=== PATIENT | male | born 1945 | race Caucasian/White ===

== ENCOUNTER 2017-06-23 15:42 | Observation (INO) | payer MEDICARE ==
[2017-06-23] VITALS (8 sets, daily range): BP systolic 87–132; BP diastolic 46–68; PULSE 45–72; RESP 16–17; TEMP 98.5; O2SAT 96–97
[~2017-06-23] VITALS: Ht 182.9 cm; Wt 88.9 kg
[~2017-06-23 15:42] MED LIST: AMLO5TAB2 PO; ASPI1TAB57 PO; LISI10TA3 PO; PRIL20TA2 PO; ROSU10 PO; SM M250T PO
[2017-06-23] MEDS ORDERED: ASPIRIN 325 MG TAB PO ONE (16:00)
[2017-06-23] MEDS ORDERED: NITROGLYCERIN 0.4 MG SL 25 TABS/BTL SL ONE (16:00)
[2017-06-23] MEDS ORDERED: SODIUM CHLORIDE 0.9% FLUSH 10 ML FLUSH IVF PRN (16:00)
--- NOTE | 2017-06-23 16:13 | PD ---
HPI Chief Complaint: Cardiac Complaint Time Seen by Provider: 16:00 Travel History International Travel<30 days: No Contact w/Intl Traveler<30days: No Traveled to known affect area: No History of Present Illness HPI 71 y/o male presents with indigestion and tired feeling with associated chest pain over the past couple of days. He states he went to his primary care physician who referred him here after doing an EKG. He states that he's taken a baby aspirin today. He denies any other concurrent complaints. He states his lounge car attendant is in [place] and he has not seen them for a couple years. He states that he's had an ablation before and his last cardiac workup was a stress test a couple years ago. Quality is pressure. Severity is moderate. He denies specific modifying factors. Duration is couple of days. PFSH Past Medical History Hx Anticoagulant Therapy: Yes (asa 81mg) Cardiovascular Problems: Yes (htn on meds) High Cholesterol: Yes Hypertension: Yes Past Surgical History Appendectomy: Yes Social History Alcohol Use: Yes Tobacco Use: No Substance Use: No Allergies-Medications (Allergen,Severity, Reaction): Coded Allergies: gabapentin (Unverified Allergy, Severe, Rash, 06/23/17) bacitracin (Unverified Allergy, Unknown, RASH, 06/23/17) gramicidin D (Unverified Allergy, Unknown, RASH, 06/23/17) neomycin (Unverified Allergy, Unknown, RASH, 06/23/17) polymyxin B (Unverified Allergy, Unknown, RASH, 06/23/17) Reported Meds & Prescriptions Reported Meds & Active Scripts Active Reported Clindamycin (Clindamycin HCl) 300 Mg Cap 300 Mg PO Q6H Amlodipine (Amlodipine Besylate) 5 Mg Tab 5 Mg PO DAILY Aspirin 81 (Aspirin) 81 Mg Tabdr 81 Mg PO DAILY Lisinopril 10 Mg Tab 10 Mg PO DAILY Sm Magnesium (Magnesium) 250 Mg Tab 1 Tab PO DAILY Prilosec (Omeprazole Magnesium) 20 Mg Tab 1 Tab PO DAILY Crestor (Rosuvastatin Calcium) 10 Mg Tab 10 Mg PO HS Review of Systems Except as stated in HPI: all other systems reviewed are Neg Physical Exam Narrative GENERAL: 71-year-old male in no apparent distress SKIN: Focused skin assessment warm/dry. HEAD: Atraumatic. Normocephalic. EYES: Pupils equal and round. No scleral icterus. No injection or drainage. ENT: No nasal bleeding or discharge. Mucous membranes pink and moist. NECK: Trachea midline. No JVD. CARDIOVASCULAR: Regular rate and rhythm. No murmur appreciated. RESPIRATORY: No accessory muscle use. Clear to auscultation. Breath sounds equal bilaterally. GASTROINTESTINAL: Abdomen soft, non-tender, nondistended. MUSCULOSKELETAL: No obvious deformities. No clubbing. No cyanosis. No edema. Limited Right middle toe with mild amount of erythema noted without active abscess or crepitus NEUROLOGICAL: Awake and alert. Motor grossly within normal limits. Normal speech. Data Data Last Documented VS Vital Signs Date Time Temp Pulse Resp B/P (MAP) Pulse Ox O2 Delivery O2 Flow Rate FiO2 06/23/17 16:27 Room Air 06/23/17 16:21 16 06/23/17 16:18 111/56 (74) 87/46 (60) 06/23/17 16:17 96 06/23/17 15:55 98.5 45 Orders Orders Electrocardiogram (06/23/17 16:00) B-Type Natriuretic Peptide (06/23/17 16:00) Ckmb (Isoenzyme) Profile (06/23/17 16:00) Complete Blood Count With Diff (06/23/17 16:00) Comprehensive Metabolic Panel (06/23/17 16:00) Magnesium (Mg) (06/23/17 16:00) Prothrombin Time / Inr (Pt) (06/23/17 16:00) Act Partial Throm Time (Ptt) (06/23/17 16:00) Troponin I (06/23/17 16:00) Ecg Monitoring (06/23/17 16:00) Bilateral Bp Monitoring (06/23/17 16:00) Iv Access Insert/Monitor (06/23/17 16:00) Oximetry (06/23/17 16:00) Aspirin (Aspirin) (06/23/17 16:00) Sodium Chloride 0.9% Flush (Ns Flush) (06/23/17 16:00) Nitroglycerin Sl (Nitrostat Sl) (06/23/17 16:00) Chest, Pa & Lat (06/23/17 16:00) CKMB (06/23/17 16:10) CKMB% (06/23/17 16:10) Admit Order (Ed Use Only) (06/23/17 17:10) Place In Observation (06/23/17 17:14) Activity Bed Rest With Brp (06/23/17 17:14) Vital Signs (Adult) Q4H (06/23/17 17:14) Cardiac Rhythm .As Directed (06/23/17 17:14) Notify Dr: Other .PRN (06/23/17 17:14) Notify Dr. Parameters (06/23/17 17:14) Resp Oxygen Nasal Cannula (06/23/17 ) Diet Heart Healthy (06/23/17 Dinner) Ckmb (Isoenzyme) Profile (06/23/17 19:00) Ckmb (Isoenzyme) Profile (06/23/17 22:00) Troponin I (06/23/17 19:00) Troponin I (06/23/17 22:00) Electrocardiogram (06/23/17 19:00) Electrocardiogram (06/23/17 22:00) ^ Obtain (06/23/17 17:14) Sodium Chloride 0.9% Flush (Ns Flush) (06/23/17 17:15) Sodium Chloride 0.9% Flush (Ns Flush) (06/23/17 21:00) Acetaminophen (Tylenol) (06/23/17 17:15) Acetamin-Hydrocod 325-7.5 Mg ([place] 7.5 (06/23/17 17:15) Morphine Inj (Morphine Inj) (06/23/17 17:15) Ondansetron Inj (Zofran Inj) (06/23/17 17:15) Nitroglycerin Sl (Nitrostat Sl) (06/23/17 17:15) Aspirin (Aspirin) (06/24/17 09:00) Lead Simulation Modeling Engineer / Telemetry SARAH.Q8H (06/23/17 17:14) Scd Bilateral/Knee High SARAH.BID (06/23/17 17:14) [place] Bilateral/Knee High SARAH.QSHIFT (06/23/17 17:14) Npo After Midnight W/ Po Meds (06/24/17 Breakfast) Amlodipine (Norvasc) (06/24/17 09:00) Lisinopril (Prinivil) (06/24/17 09:00) (Nf) Omeprazole Magnesium (Prilosec) (06/24/17 09:00) (Nf) Rosuvastatin (Crestor) (06/23/17 21:00) Labs Laboratory Tests Test 06/23/17 16:10 White Blood Count 8.4 TH/MM3 Red Blood Count 4.96 MIL/MM3 Hemoglobin 16.2 GM/DL Hematocrit 46.3 % Mean Corpuscular Volume 93.4 FL Mean Corpuscular Hemoglobin 32.8 PG Mean Corpuscular Hemoglobin Concent 35.1 % Red Cell Distribution Width 12.2 % Platelet Count 173 TH/MM3 Mean Platelet Volume 7.9 FL Neutrophils (%) (Auto) 56.4 % Lymphocytes (%) (Auto) 26.4 % Monocytes (%) (Auto) 12.2 % Eosinophils (%) (Auto) 3.9 % Basophils (%) (Auto) 1.1 % Neutrophils # (Auto) 4.8 TH/MM3 Lymphocytes # (Auto) 2.2 TH/MM3 Monocytes # (Auto) 1.0 TH/MM3 Eosinophils # (Auto) 0.3 TH/MM3 Basophils # (Auto) 0.1 TH/MM3 CBC Comment DIFF FINAL Differential Comment Prothrombin Time 10.1 SEC Prothromb Time International Ratio 1.0 RATIO Activated Partial Thromboplast Time 25.1 SEC Blood Urea Nitrogen 23 MG/DL Creatinine 1.00 MG/DL Random Glucose 96 MG/DL Total Protein 8.0 GM/DL Albumin 4.0 GM/DL Calcium Level 9.4 MG/DL Magnesium Level 2.1 MG/DL Alkaline Phosphatase 83 U/L Aspartate Amino Transf (AST/SGOT) 30 U/L Alanine Aminotransferase (ALT/SGPT) 33 U/L Total Bilirubin 0.9 MG/DL Sodium Level 134 MEQ/L Potassium Level 4.1 MEQ/L Chloride Level 102 MEQ/L Carbon Dioxide Level 24.6 MEQ/L Anion Gap 7 MEQ/L Estimat Glomerular Filtration Rate 74 ML/MIN Total Creatine Kinase 107 U/L Creatine Kinase MB 3.2 NG/ML Troponin I LESS THAN 0.02 NG/ML B-Type Natriuretic Peptide 164 PG/ML MDM Medical Decision Making Medical Screen Exam Complete: Yes Emergency Medical Condition: Yes Medical Record Reviewed: Yes (pmh confirmed) Interpretation(s) CBC & BMP Diagram 06/23/17 16:10 Total Protein 8.0, Albumin 4.0, Calcium Level 9.4, Magnesium Level 2.1, Alkaline Phosphatase 83, Aspartate Amino Transf (AST/SGOT) 30, Alanine Aminotransferase (ALT/SGPT) 33, Total Bilirubin 0.9 cxr no acute Differential Diagnosis Gastritis, cardiac, musculoskeletal Narrative Course Will check blood work, chest x-ray, EKG and dose with aspirin and nitroglycerin and reevaluate. Area on patient's toe is starting to improve per patient on the clindamycin that he is taking. This can be continued. labs without emergent findings, agrees to [facility] observation Physician Communication Physician Communication dr guevara agrees to admit Diagnosis Primary Impression: Chest pain Qualified Codes: R07.9 - Chest pain, unspecified Admitting Information Admitting Physician Requests: Observation Ada Srinivasan MD Jun 23, 2017 16:12
[2017-06-23 16:26] LABS: AUTOMATED NEUTROPHIL # 4.8 TH/MM3 (1.8-7.7); BASOPHIL # 0.1 TH/MM3 (0-0.2); BASOPHIL % 1.1 % (0.0-2.0); EOSINOPHIL # 0.3 TH/MM3 (0-0.4); EOSINOPHIL % 3.9 % (0.0-4.0); HEMATOCRIT 46.3 % (39.0-51.0); HEMOGLOBIN 16.2 GM/DL (13.0-17.0); LYMPH % 26.4 % (9.0-44.0); LYMPHOCYTE # 2.2 TH/MM3 (1.0-4.8); MEAN CELL VOLUME 93.4 FL (80.0-100.0); MEAN CORPUSCULAR HEMOGLOBIN 32.8 PG (27.0-34.0); MEAN CORPUSCULAR HGB CONC 35.1 % (32.0-36.0); MEAN PLATELET VOLUME 7.9 FL (7.0-11.0); MONO % 12.2 % (0.0-8.0); NEUT % 56.4 % (16.0-70.0); PLATELET COUNT 173 TH/MM3 (150-450); RED BLOOD COUNT 4.96 MIL/MM3 (4.50-5.90); RED CELL DISTRIBUTION WIDTH 12.2 % (11.6-17.2); WHITE BLOOD COUNT 8.4 TH/MM3 (4.0-11.0)
[2017-06-23] MEDS ORDERED: CLIN300C5 PO (16:27)
[2017-06-23 16:36] LABS: CHLORIDE 102 MEQ/L (98-107); SODIUM (NA) 134 MEQ/L (136-145)
[2017-06-23 16:39] LABS: CALCIUM 9.4 MG/DL (8.5-10.1)
[2017-06-23 16:40] LABS: BICARBONATE 24.6 MEQ/L (21.0-32.0); BLOOD UREA NITROGEN 23 MG/DL (7-18); GLUCOSE,RANDOM 96 MG/DL (74-106); MAGNESIUM 2.1 MG/DL (1.5-2.5); PROTHROMBIN TIME - PATIENT 10.1 SEC (9.8-11.6)
[2017-06-23 16:43] LABS: ALT (GPT) 33 U/L (12-78); AST (GOT) 30 U/L (15-37); GLOMERULAR FILTRATION RATE 74 ML/MIN (>89)
[2017-06-23 16:45] LABS: TOTAL BILIRUBIN ADULT 0.9 MG/DL (0.2-1.0)
[2017-06-23 16:46] LABS: ALKALINE PHOSPHATASE 83 U/L (45-117)
[2017-06-23 16:48] LABS: TROPONIN I LESS THAN 0.02 NG/ML (0.02-0.05)
[2017-06-23] MEDS ORDERED: ACETAMINOPHEN/HYDROcodone 325 MG/7.5 MG TAB PO PRN (17:15)
[2017-06-23] MEDS ORDERED: ACETAMINOPHEN 500 MG CPLT PO PRN (17:15)
[2017-06-23] MEDS ORDERED: NITROGLYCERIN 0.4 MG SL 25 TABS/BTL SL PRN (17:15)
[2017-06-23] MEDS ORDERED: ONDANSETRON HCL 4 MG/2 ML VIAL IV PUSH PRN (17:15)
[2017-06-23] MEDS ORDERED: SODIUM CHLORIDE 0.9% FLUSH 10 ML FLUSH IV FLUSH PRN (17:15)
--- NOTE | 2017-06-23 17:23 | RADRPT ---
EXAM DATE/TIME: 06/23/2017 16:39 [facility] COMPARISON: No previous studies available for comparison. INDICATIONS : Chest pain. MEDICAL HISTORY : None. SURGICAL HISTORY : None. ENCOUNTER: Initial ACUITY: 1 day PAIN SCORE: 2/10 LOCATION: Bilateral chest FINDINGS: PA and lateral views of the chest demonstrate the lungs to be symmetrically aerated without evidence of mass, infiltrate or effusion. The cardiomediastinal contours are unremarkable except tortuous aor ta. Bones are intact. CONCLUSION: 1. No active disease. Tortuous aorta. Cresencio Guzman MD on June 23, 2017 at 17:19 Board Certified Radiologist. This report was verified electronically.
--- NOTE | 2017-06-23 17:43 | HHI.HP ---
[facility] Jin Grey DO Admission Diagnosis chest pain Diagnoses: (1) Chest pain Diagnosis: Principal Chief Complaint: Chest discomfort Travel History International Travel<30 Days: No Contact w/Intl Traveler <30 Da: No Traveled to Known Affected Are: No History of Present Illness 71 year-old male with known history of hypertension, hyperlipidemia, gastroesophageal reflux, history of arrhythmia requiring cardiac ablation who presented to hospital because of chest discomfort. Patient states that he started developing the chest discomfort Thursday evening which he describes as a constant pain 5/10 on a pain scale in the middle part of his chest without any radiation to the neck, back, shoulder, arm. Denied any nausea, vomiting, diaphoresis, shortness of breath, dyspnea. Patient states that there was some lightheaded dizziness upon standing. He states that the pain is worse whenever he eats anything. Pain is not affected by exertion or rest. The pain has been constant since Thursday night. He went to his primary medical doctor's office for evaluation and they did an EKG and recommended that the patient come to the hospital for evaluation. Patient had workup done emergency department which was unremarkable this far and it was recommended by the ER physician that the patient be observed and chest pain center. Patient states that he has had a myocardial perfusion study performed approximately 6-7 years ago when he had his cardiac ablation performed Review of Systems Cardiovascular: COMPLAINS OF: Chest pain Except as stated in HPI: all other systems reviewed are Neg Past Family Social History Past Medical History Hypertension Hyperlipidemia Gastroesophageal reflux History of arrhythmia requiring ablation Past Surgical History Cardiac ablation Appendectomy Tonsillectomy Cataract surgery Right knee surgery Right shoulder surgery Left elbow surgery Reported Medications Reported Meds & Active Scripts Active Reported Clindamycin (Clindamycin HCl) 300 Mg Cap 300 Mg PO Q6H Amlodipine (Amlodipine Besylate) 5 Mg Tab 5 Mg PO DAILY Aspirin 81 (Aspirin) 81 Mg Tabdr 81 Mg PO DAILY Lisinopril 10 Mg Tab 10 Mg PO DAILY Sm Magnesium (Magnesium) 250 Mg Tab 1 Tab PO DAILY Prilosec (Omeprazole Magnesium) 20 Mg Tab 1 Tab PO DAILY Crestor (Rosuvastatin Calcium) 10 Mg Tab 10 Mg PO HS Allergies: Coded Allergies: gabapentin (Unverified Allergy, Severe, Rash, 06/23/17) bacitracin (Unverified Allergy, Unknown, RASH, 06/23/17) gramicidin D (Unverified Allergy, Unknown, RASH, 06/23/17) neomycin (Unverified Allergy, Unknown, RASH, 06/23/17) polymyxin B (Unverified Allergy, Unknown, RASH, 06/23/17) Family History Reviewed and unremarkable. States that his mother just at age 94 and she was in good health at that time. Denies any history of heart disease, lung disease, cancer, seizures, stroke Social History Patient does drink approximately 2 alcoholic beverages daily. Denies any tobacco or illicit drugs Physical Exam Vital Signs Vital Signs Date Time Temp Pulse Resp B/P (MAP) Pulse Ox O2 Delivery O2 Flow Rate FiO2 06/23/17 16:27 Room Air 06/23/17 16:21 16 06/23/17 16:18 111/56 (74) 87/46 (60) 06/23/17 16:17 16 96 Room Air 06/23/17 15:55 98.5 45 16 132/65 (87) 97 Physical Exam GENERAL: Well-developed, well-nourished, in no acute distress. alert and orientated HEENT: Head is normocephalic without any lesions or masses noted. Facial features are symmetric. Eyes: Pupils equal round reactive to light. Extraocular muscles are intact. Conjunctivae were clear. Oropharyngeal: Pharynx without any erythema edema. Tongue is midline without deviation. Buccal mucosa is moist without any masses or lesions NECK: Supple without any masses. Trachea midline no deviation. No JVD, no bruits are appreciated CARDIAC: Regular rhythm, regular rate. S1/S2 are heard. No murmurs gallops or rubs. LUNGS: Clear to auscultation bilaterally. No wheeze, rhonchi or rales. No use of accessory muscles on inspiration or expiration. ABDOMEN: Soft, nontender. Nondistended. Bowel sounds heard in all 4 quadrants. No organomegaly or masses. Negative rebound, negative guarding EXTREMITIES: No edema, pulses are equal bilaterally. No cyanosis or clubbing NEUROLOGY: Mood and affect appear appropriate. Cranial nerves II through XII grossly intact. Muscle strength 5/5 in upper and lower extremities bilaterally. Deep tendon reflexes are 2+ in upper and lower extremities bilaterally. Laboratory Laboratory Tests Test 06/23/17 16:10 White Blood Count 8.4 Red Blood Count 4.96 Hemoglobin 16.2 Hematocrit 46.3 Mean Corpuscular Volume 93.4 Mean Corpuscular Hemoglobin 32.8 Mean Corpuscular Hemoglobin Concent 35.1 Red Cell Distribution Width 12.2 Platelet Count 173 Mean Platelet Volume 7.9 Neutrophils (%) (Auto) 56.4 Lymphocytes (%) (Auto) 26.4 Monocytes (%) (Auto) 12.2 Eosinophils (%) (Auto) 3.9 Basophils (%) (Auto) 1.1 Neutrophils # (Auto) 4.8 Lymphocytes # (Auto) 2.2 Monocytes # (Auto) 1.0 Eosinophils # (Auto) 0.3 Basophils # (Auto) 0.1 CBC Comment DIFF FINAL Differential Comment Prothrombin Time 10.1 Prothromb Time International Ratio 1.0 Activated Partial Thromboplast Time 25.1 Blood Urea Nitrogen 23 Creatinine 1.00 Random Glucose 96 Total Protein 8.0 Albumin 4.0 Calcium Level 9.4 Magnesium Level 2.1 Alkaline Phosphatase 83 Aspartate Amino Transf (AST/SGOT) 30 Alanine Aminotransferase (ALT/SGPT) 33 Total Bilirubin 0.9 Sodium Level 134 Potassium Level 4.1 Chloride Level 102 Carbon Dioxide Level 24.6 Anion Gap 7 Estimat Glomerular Filtration Rate 74 Total Creatine Kinase 107 Creatine Kinase MB 3.2 Troponin I LESS THAN 0.02 B-Type Natriuretic Peptide 164 Result Diagram: 06/23/17 1610 06/23/17 1610 Caprini VTE Risk Assessment Caprini VTE Risk Assessment: Mod/High Risk (score >= 2) Caprini Risk Assessment Model Point Value = 1 Point Value = 2 Point Value = 3 Point Value = 5 Age 41-60 Minor surgery BMI > 25 kg/m2 Swollen legs Varicose veins or History of unexplained or recurrent spontaneous Oral contraceptives or hormone replacement Sepsis (< 1 month) Serious lung disease, including pneumonia (< 1 month) Abnormal pulmonary function Acute myocardial infarction Congestive heart failure (< 1 month) History of inflammatory bowel disease Medical patient at bed rest Age 61-74 Arthroscopic surgery Major open surgery (> 45 min) Laparoscopic surgery (> 45 min) Malignancy Confined to bed (> 72 hours) Immobilizing plaster cast Central venous access Age >= 75 History of VTE Family history of VTE Factor V Leiden Prothrombin [id number] Lupus anticoagulant Anticardiolipin antibodies Elevated serum homocysteine Heparin-induced thrombocytopenia Other congenital or acquired thrombophilia Stroke (< 1 month) Elective arthroplasty Hip, pelvis, or leg fracture Acute spinal cord injury (< 1 month) Prophylaxis Regimen Total Risk Factor Score Risk Level Prophylaxis Regimen 0-1 Low Early ambulation 2 Moderate Order ONE of the following: *Sequential Compression Device (SCD) *Heparin 5000 units SQ BID 3-4 Higher Order ONE of the following medications: *Heparin 5000 units SQ TID *Enoxaparin/Lovenox 40 mg SQ daily (WT < 150 kg, CrCl > 30 mL/min) *Enoxaparin/Lovenox 30 mg SQ daily (WT < 150 kg, CrCl > 10-29 mL/min) *Enoxaparin/Lovenox 30 mg SQ BID (WT < 150 kg, CrCl > 30 mL/min) AND/OR *Sequential Compression Device (SCD) 5 or more Highest Order ONE of the following medications: *Heparin 5000 units SQ TID (Preferred with Epidurals) *Enoxaparin/Lovenox 40 mg SQ daily (WT < 150 kg, CrCl > 30 mL/min) *Enoxaparin/Lovenox 30 mg SQ daily (WT < 150 kg, CrCl > 10-29 mL/min) *Enoxaparin/Lovenox 30 mg SQ BID (WT < 150 kg, CrCl > 30 mL/min) AND *Sequential Compression Device (SCD) Assessment and Plan Assessment and Plan Chest pain, atypical Patient has increased risk factors to include age, hypertension, hyperlipidemia We'll continue to rule patient out for acute coronary event with serial cardiac enzymes and serial EKGs Initial EKG shows sinus rhythm with frequent the trigger. Her complexes in a bigeminy pattern. Will pursue myocardial perfusion study to rule out any underlying ischemia Continue aspirin, nitroglycerin as needed Hypertension, Hyperlipidemia Continue home medications DVT prevention sequential compression devices Problem Qualifiers (1) Chest pain: Qualified Codes: R07.9 - Chest pain, unspecified Lenin Lemus Jun 23, 2017 17:43
[2017-06-23] MEDS ORDERED: MORPHINE SULFATE 2 MG/ML INJ IV PUSH PRN (17:45)
[2017-06-23 19:28] LABS: TROPONIN I LESS THAN 0.02 NG/ML (0.02-0.05)
[2017-06-23] MEDS ORDERED: ATORVASTATIN 20 MG TAB PO SCH (21:00)
[2017-06-23] MEDS: SODIUM CHLORIDE 0.9% FLUSH 10 ML FLUSH IV FLUSH SCH (22:14)
--- NOTE | 2017-06-23 22:25 | EKG ---
Date Performed: 06/23/2017 Time Performed: 19:13:23 PTAGE: 71 years EKG: Sinus rhythm WITH FREQUENT VENTRICULAR PREMATURE COMPLEXES MARKED LEFT AXIS DEVIATION LEFT VENTRICULAR HYPERTROPH Y AND ST-T CHANGE ABNORMAL ECG PREVIOUS TRACING : 06/23/2017 16.12 Since the previous tracing, no significant change noted DOCTOR: Mariusz Kumar Interpretating Date/Time 06/23/2017 22:24:13
[2017-06-23 23:25] LABS: TROPONIN I LESS THAN 0.02 NG/ML (0.02-0.05)
[2017-06-24] VITALS (7 sets, daily range): BP systolic 110–125; BP diastolic 61–70; PULSE 57–97; RESP 16–18; TEMP 97.3–98.1; O2SAT 95–96
[2017-06-24] MEDS ORDERED: ASPIRIN 325 MG TAB PO SCH (09:00)
[2017-06-24] MEDS ORDERED: LISINOPRIL 10 MG TAB PO SCH (09:00)
[2017-06-24] MEDS ORDERED: PANTOPRAZOLE SOD 20 MG DELAYED RELEASE TAB PO SCH (09:00)
[2017-06-24] MEDS ORDERED: amLODIPine BESYLATE 5 MG TAB PO SCH (09:00)
[2017-06-24] MEDS: SODIUM CHLORIDE 0.9% FLUSH 10 ML FLUSH IV FLUSH SCH (09:20)
--- NOTE | 2017-06-24 09:37 | HHI.PR ---
Subjective Remarks Patient seen and examined today for follow-up on chest pain. Patient states that he did well. Slept good overnight. Has some mild indigestion this morning but no return of his acute chest discomfort. Vital signs are stable, patient remains afebrile. Objective Vitals Vital Signs Date Time Temp Pulse Resp B/P (MAP) Pulse Ox O2 Delivery O2 Flow Rate FiO2 06/24/17 07:45 96 21 06/24/17 07:01 67 06/24/17 04:00 98.1 79 18 122/68 (86) 95 06/24/17 00:00 97.5 80 17 125/70 (88) 96 06/23/17 23:41 96 21 06/23/17 21:45 67 06/23/17 21:14 06/23/17 19:05 64 16 123/68 (86) 96 Room Air 06/23/17 18:35 97 21 06/23/17 18:00 72 17 104/65 (78) 97 Room Air 06/23/17 16:27 Room Air 06/23/17 16:21 16 06/23/17 16:18 111/56 (74) 87/46 (60) 06/23/17 16:17 16 96 Room Air 06/23/17 15:55 98.5 45 16 132/65 (87) 97 Result Diagram: 06/23/17 1610 06/23/17 1610 Objective Remarks GENERAL: Well-developed, well-nourished, in no acute distress. alert and orientated HEENT: Head is normocephalic without any lesions or masses noted. Facial features are symmetric. Eyes: Extraocular muscles are intact. Conjunctivae were clear. NECK: Supple without any masses. Trachea midline no deviation. No JVD, CARDIAC: Regular rhythm, regular rate. S1/S2 are heard. No murmurs gallops or rubs. LUNGS: Clear to auscultation bilaterally. No wheeze, rhonchi or rales. No use of accessory muscles on inspiration or expiration. ABDOMEN: Soft, nontender. Nondistended. Bowel sounds heard in all 4 quadrants. No organomegaly or masses. Negative rebound, negative guarding EXTREMITIES: No edema, pulses are equal bilaterally. No cyanosis or clubbing NEUROLOGY: Mood and affect appear appropriate. Cranial nerves II through XII grossly intact. Moving all extremities, speech is clear Urinary Catheter: No Vascular Central Line Catheter: No A/P Assessment and Plan Chest pain, atypical Patient has increased risk factors to include age, hypertension, hyperlipidemia Patient has been ruled out for acute coronary event with serial cardiac enzymes remain negative. Serial EKGs indicate sinus rhythm with frequent ventricular complexes in a bigeminy pattern. Without any changes Myocardial perfusion test was performed which indicated no signs of ischemia , however hypokinesis with ejection fraction 36%. High risk Echocardiogram was performed and reviewed with hydrogen power plant engineer who indicated that patient had normal left ventricular function and no significant valvular abnormality Continue aspirin, nitroglycerin as needed Hypertension, Hyperlipidemia Continue home medications DVT prevention sequential compression devices Discharge Planning Discharge home in stable condition Activity: Ad raimundo. Diet: Healthy heart diet Medication per medication reconciliation Follow-up with primary medical doctor in 1 week Lenin Lemus Jun 24, 2017 09:37
[2017-06-24] MEDS ORDERED: REGADENOSON INJ 0.4 MG/5 ML SYR IV ONE (11:58)
--- NOTE | 2017-06-24 12:56 | RADRPT ---
EXAM DATE/TIME: 06/24/2017 11:43 [facility] COMPARISON: No previous studies available for comparison. INDICATIONS : Midsternal chest pain. Angina. DOSE: 26.7 mCi Tc99m Myoview at stress. 8.2 mCi Tc99m Myoview at rest. 0.4 mg Lexiscan STRESS SYMPTOMS: Midchest pain. EJECTION FRACTION: 36% MEDICAL HISTORY : Hypertension. Carcinoma, basal cell. SURGICAL HISTORY : Appendectomy. Right knee surgery. ENCOUNTER: Initial ACUITY: 1 day PAIN SCALE: 5/10 LOCATION: Midsternal chest TECHNIQUE: The patient underwent pharmacologic stress with infusion of prescribed dose. Continuous ECG tracing was monitored during stress. Gated SPECT imaging was performed after stress and conventional SPECT i maging was performed at rest. The examination was performed on a SPECT/CT scanner, both attenuation and non-corrected datasets were reviewed. FINDINGS: DISTRIBUTION: The maximum perfused segment at stress is in the anterior wall. PERFUSION STUDY: There is moderately diminished posterior basal and inferior wall perfusion extending to the cardiac a pex. No definite redistribution. GATED STUDY: Moderate left ventricular chamber dilatation and global hypokinesis. CONCLUSION: No evidence of ischemia. Significant LV dilatation and dysfunction RISK CATEGORY: High (>3% Annual Mortality Rate) Brian Torres MD on June 24, 2017 at 12:50 Board Certified Radiologist. This report was verified electronically.
--- NOTE | 2017-06-24 16:44 | TR ---
Date Performed: 06/24/2017 Time Performed: 12:08:57 DOCTOR: Chris Le DRUG LIST: CLINICAL HISTORY: REASON FOR TEST: REASON FOR ENDING: OBSERVATION: CONCLUSION: Lexiscan stress test was performed under standard four minute protocol. Radionucl[place] e was injected one minute prior to ending the test. No electrocardiographic abormalities were present to suggest ischemia. Nuclear imaging and interpretation are pending. COMMENTS:
--- NOTE | 2017-06-24 17:03 | HHI.DCPOC ---
Discharge Care Plan Diagnosis: (1) Chest pain Goals to Promote Your Health * To prevent worsening of your condition and complications * To maintain your health at the optimal level Directions to Meet Your Goals Take your medications as prescribed Follow your dietary instruction Follow activity as directed Keep your appointments as scheduled Take your immunizations and boosters as scheduled If your symptoms worsen call your PCP, if no PCP go to Urgent Care Center or Emergency Room Smoking is Dangerous to Your Health. Avoid second hand smoke Call the 24-hour hour crisis hotline for domestic abuse at Lenin Lemus Jun 24, 2017 17:03
--- NOTE | 2017-06-24 18:02 | ECHRPT ---
Indication: CONCLUSIONS The left ventricular systolic function is low normal with an estimated ejection fraction in the rang e of 40- 45%. Wall thickness is normal. Normal left ventricular size. very technically limited study BP: / HR: Rhythm: Other MEASUREMENTS (Male / Female) Normal Values Technical Quality:Technically difficult study 2D ECHO LV Diastolic Diameter PLAX 5.2 cm 4.2 - 5.9 / 3.9 - 5.3 cm LV Systolic Diameter PLAX 4.1 cm IVS Diastolic Thickness 1.0 cm 0.6 - 1.0 / 0.6 - 0.9 cm LVPW Diastolic Thickness 1.0 cm 0.6 - 1.0 / 0.6 - 0.9 cm LV Relative Wall Thickness 0.4 LVOT Diameter 2.2 cm M-MODE Aortic Root Diameter MM 2.4 cm LA Systolic Diameter MM 5.6 cm LA Ao Ratio MM 2.3 AV Cusp Separation MM 1.5 cm DOPPLER AV Peak Velocity 162.0 cm/s AV Peak Gradient 10.5 mmHg LVOT Peak Velocity 69.6 cm/s LVOT Peak Gradient 1.9 mmHg AV Area Cont Eq pk 1.6 cm Mitral E Point Velocity 77.0 cm/s Mitral A Point Velocity 57.8 cm/s Mitral E to A Ratio 1.3 LV E' Lateral Velocity 7.5 cm/s Mitral E to LV E' Lateral Ratio 10.3 PV Peak Velocity 141.0 cm/s PV Peak Gradient 8.0 mmHg FINDINGS LEFT VENTRICLE The left ventricular systolic function is low normal with an estimated ejection fraction in the rang e of 50- 55%. Wall thickness is normal. Normal left ventricular size. RIGHT VENTRICLE Normal right ventricular size and systolic function. LEFT ATRIUM The left atrial size is normal. RIGHT ATRIUM The right atrial size is normal. ATRIAL SEPTUM Normal atrial septal thickness without atrial level shunting by limited color doppler interrogation. AORTA The aortic root and proximal ascending aorta are normal in size on limited imaging. MITRAL VALVE Structurally normal mitral valve. No mitral valve stenosis or regurgitation. AORTIC VALVE Trileaflet aortic valve. No aortic valve stenosis or regurgitation. TRICUSPID VALVE Structurally normal tricuspid valve. No tricuspid valve stenosis or regurgitation. PULMONARY VALVE The pulmonary valve is not well visualized. VESSELS The inferior vena cava is normal in size. PERICARDIUM No pericardial effusion. Alexandre Duval MD, FACC, FSCAI (Electronically Signed) Final Date:24 June 2017 18:01
--- NOTE | 2017-06-24 22:36 | EKG ---
Date Performed: 06/23/2017 Time Performed: 22:37:15 PTAGE: 71 years EKG: Sinus rhythm WITH FREQUENT VENTRICULAR PREMATURE COMPLEXES BORDERLINE LEFT AXIS DEVIATION LEFT VENTRICULAR HYPERT ROPHY AND ST-T CHANGE ABNORMAL ECG PREVIOUS TRACING : 06/23/2017 19.13 Since the previous tracing, no significant change noted DOCTOR: Mariusz Kumar Interpretating Date/Time 06/24/2017 22:35:43
--- NOTE | 2017-06-24 22:48 | EKG ---
Date Performed: 06/23/2017 Time Performed: 16:12:07 PTAGE: 71 years EKG: Sinus rhythm WITH FREQUENT VENTRICULAR PREMATURE COMPLEXES IN A BIGEMINAL PATTERN MARKED LEFT AXIS DEVIATION MODE RATE INTRAVENTRICULAR CONDUCTION DELAY VOLTAGE CRITERIA FOR LVH ABNORMAL ECG NO PREVIOUS TRACING DOCTOR: Mariusz Kumar Interpretating Date/Time 06/24/2017 22:47:55
== END 2017-06-24 18:46 | disposition home or self-care (01) ==
LOC: PHED 15:42 → PHEDA 17:11 → PH3B 21:11
PROVIDERS: ADMIT Hospitalist; ATTEND Hospitalist
DX: R07.89 Other chest pain (principal); R42 Dizziness and giddiness; R00.8 Other abnormalities of heart beat; I49.3 Ventricular premature depolarization; R94.31 Abnormal electrocardiogram [ECG] [EKG]; I11.9 Hypertensive heart disease without heart failure; E78.00 Pure hypercholesterolemia, unspecified; Q25.46 Tortuous aortic arch; K21.9 Gastro-esophageal reflux disease without esophagitis; Z79.899 Other long term (current) drug therapy; Z79.82 Long term (current) use of aspirin; Z85.828 Personal history of other malignant neoplasm of skin
CPT/HCPCS: 71046; 78452; 80053; 82550; 82552; 83735; 83880; 84484; 85025; 85610; 85730; 93005; 93017; 93306; A9502; J2785; G0378